=== PATIENT | male | born 2000 | race Caucasian/White ===

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

== ENCOUNTER 2020-07-06 13:00 | Outpatient (RCR) | payer BC, SELFPAY ==
[2019-04-13 13:11] VITALS: BMI 22.2
--- NOTE | 2020-06-30 16:02 | HP.PTEVAL ---
Patient's Visit Information WARD BERNAL is a 20 year old M referred to Physical Therapy by Srini Dixon PA-C with a diagnosis of R knee patello femoral syndrome. Date of Evaluation: 06/30/20 Physical Therapist: Luis Serrato, PT, ATC - Visit Plan Frequency: 2x /Week Duration: 1 Week Plan: Issue and instruct pt on HEP of core stab ex's and VMO strengthening - Subjective Pt reports his R knee became sore approximately 3 months ago. Pt reports his pain had an insidious onset in nature. Pt reports his pain is intermittent, and usually occurs when he is squatting. Pt reports he experiences clicking in his L knee when he is riding a bike. Pt notes his pain is located at the top portion of his L knee. Pt notes he has not had any significant PMHx of R knee complications. No tingling or numbness in L LE. Pt denies sleep difficulty at this time. Pt reports he has no limitations with IADL's. Pt reports he had x rays which revealed no problems. Pt notes the only thing he is limited with is crossfit. Pt reports R knee pain 0/10 at rest, 6/10 with crossfit. - Pain R knee Pain Intensity (Out of 10): 0 Pain Intensity Range: 6 - Objective Palpation: Pt is sore along the superior pole of R patella. No crepitus present. No obvious deformity. Girth at hoint line: R knee 36 cm, L knee 35 cm. Neuro: B LE sensation is WNL to light touch. B achilles reflex= 2/3. MMT: B knee flex and ext= 4+/5. ROM: L knee 0-145, R knee 0-125. SPecial tests: No pos tests this date. Flexibility: miderate limiteations with HS and IT band flexibility - Goals Goal 1:: I with HEP Goal Time Frame: 2-4 Weeks - Rehabilitation Potential Physical Therapy Diagnosis: Pt has R knee pain and difficulty with exercising secondary to patellofemoral syndrom Rehabilitation Potential: Good - Anticipated Interventions Patient/Client Instruction: Educate patient on: Condition, Plan of Care For the Purpose of:: To improve self management Therapeutic Exercise to Include: Strength training, Endurance training, Balance training, Body mechanics, Flexibilty training, Dynamic Lumbar Stabilization For the Purpose of:: To decrease pain, To increase ROM, To improve muscle performance and motor function Cryotherapy (ice pack, ice massage): Yes For the Purpose of:: To decrease pain Thank you for the opportunity to evaluate your patient. For Medicare and Medicare HMO plans, please review the plan of care and approve it. It will need to be FAXED BACK to us at [phone] for Medicare purposes. For Medicare only, by signing this I certify the plan of care. Please let me know if there are questions or concerns regarding this plan of care. Physician Signature: Date:
--- NOTE | 2020-08-23 15:19 | HP.PT.NRP ---
WARD BERNAL was seen in my office for initial evaluation on 06/30/20. The following Plan of Care was established for this patient: Initial Frequency: 2x /Week Initial Duration: 1 Week Patient/Client Instruction: Educate patient on: Condition, Plan of Care For the Purpose of:: To improve self management Therapeutic Exercise to Include: Strength training, Endurance training, Balance training, Body mechanics, Flexibilty training, Dynamic Lumbar Stabilization For the Purpose of:: To decrease pain, To increase ROM, To improve muscle performance and motor function Cryotherapy (ice pack, ice massage): Yes For the Purpose of:: To decrease pain This patient was last seen in our office . Pertinent comments regarding their Physical therapy will appear below: Pt was treated for 2 PT visits for R knee pain through the date of 07/06/20. Pt has not returned through todays date and is discontinued at this time. At this point I will be discontinuing this patient from physical therapy. I would be happy to see this patient again in the future if found appropriate by the physician. Thank you! Luis Serrato, PT, ATC
== END 2020-07-06 19:00 | disposition home or self-care (01) ==
LOC: PT 13:00
PROVIDERS: PCP Nurse Practitioner Family; Referring Provider Physician Assistant Surgical; Visit Provider Physician Assistant Surgical
DX: M22.2X1 Patellofemoral disorders, right knee (principal)
CPT/HCPCS: 97110; 97161

== ENCOUNTER → 2020-10-21 16:48 | Outpatient (CLI) | payer OTHER, SELFPAY ==
[2019-04-13 13:11] VITALS: BMI 22.2
--- NOTE | 2020-10-21 16:50 | RAD_ITS ---
STUDY: X-RAY - RIGHT HAND REASON FOR EXAM: Right wrist/thumb pain, right hand injury. TECHNIQUE: 3 view(s) of the hand. COMPARISON: None. FINDINGS: Normal radiocarpal articulation. Normal distal radioulnar joint. Normal visualized carpal bones. Normal carpal articulations Normal carpometacarpal articulation of the thumb. Normal second through fifth carpometacarpal joints. Normal metacarpi. Normal metacarpophalangeal joint of the thumb. Normal interphalangeal joint of the thumb. Normal proximal and distal phalanges of the thumb. Normal metacarpophalangeal joints of the second through fifth fingers. Normal proximal and distal interphalangeal joints of the second through fifth fingers. Normal phalanges of the second through fifth fingers. The soft tissue structures are unremarkable. RAD/Hand Min 3 Views IMPRESSION: Normal x-ray examination of the right hand. Electronically Signed: Jf Medrano MD at 10:46 EDT Tel , Service support ,
--- NOTE | 2020-10-21 16:50 | RAD_ITS ---
STUDY: X-RAY - RIGHT WRIST REASON FOR EXAM: Right wrist/thumb pain, right wrist injury. TECHNIQUE: 3 view(s) of the wrist were obtained. COMPARISON: None. FINDINGS: Normal visualized distal radius and ulna. Normal radiocarpal articulation. Normal distal radioulnar articulation. Normal carpal bones. Normal carpal articulations. Normal carpometacarpal articulation of the thumb. Normal second through fifth carpometacarpal articulations. Normal visualized metacarpal bones. The soft tissue structures are unremarkable. RAD/Wrist min 3 Views IMPRESSION: Normal x-ray examination of the right wrist. Electronically Signed: Jf Medrano MD at 10:48 EDT Tel , Service support ,
== END ==
PROVIDERS: PCP Nurse Practitioner Primary Care; Referring Provider Physician Assistant; Visit Provider Physician Assistant
DX: S69.91XA Unspecified injury of right wrist, hand and finger(s), initial encounter (principal)
CPT/HCPCS: 73110; 73130